=== PATIENT | male | born 1960 | race Caucasian/White ===

== ENCOUNTER → 2017-04-21 | Outpatient (CLI) | payer BC ==
[~2017-04-21] VITALS: Ht 175.3 cm; Wt 124.3 kg
[2017-04-21 13:56] VITALS: BP 153/98; PULSE 89; Ht 175.3 cm; Wt 124.3 kg
== END | disposition home or self-care (01) ==
LOC: C.NEUR 13:42
PROVIDERS: ATTEND Internal Medicine Pulmonary Disease
DX: G47.33 Obstructive sleep apnea (adult) (pediatric) (principal)